=== PATIENT | female | born 1980 | race Caucasian/White ===

== ENCOUNTER 2018-02-07 05:48 | Emergency (ER) | payer OTHER ==
[~2018-02-07] VITALS: Ht 157.5 cm; Wt 74.4 kg
[~2018-02-07 05:48] MED LIST: DOCUSATE SODIU100 MG PO; IBUPROFEN800 MG PO; NATURAL IRON65 MG PO; PERCOCET 325 MG1 TA2 PO
--- NOTE | 2018-02-07 06:21 | ED HEADACHE COMPLAINT ---
History of Present Illness General Chief Complaint: Headache Stated Complaint: DE OLIVEIRA Source: patient Exam Limitations: no limitations Vital Signs & Intake/Output Vital Signs & Intake/Output Vital Signs Date Time Temp Pulse Resp B/P B/P Pulse O2 O2 Flow FiO2 Mean Ox Delivery Rate 02/07 0906 98.7 64 16 98/60 95 Room Air 02/07 0610 98 02/07 0555 97.6 94 18 149/95 98 Room Air Allergies Coded Allergies: NO KNOWN ALLERGIES (03/19/14) Triage Note: PT TO ED C/O HEADACHE SINCE YESTERDAY. STATES "I GET LOTS OF HEADACHES BUT THIS ONE IS WORSE AND LASTING LONGER" TRIED MOTRIN, DRANK COFFEE, TOOK A NAP AND THEN MORE MOTRIN. "NOT GETTING BETTER" "THERE'S SOMETHING WRONG, YOU BETTER SCAN MY HEAD" PT C/O +NAUSEA. PRODUCTIVE COUGH NOTED. PT RUBBING FOREHEAD, SCOTTY ASKED WHEN PAIN IS IN HEAD, STATES "IT'S MOVING ALL OVER" Triage Nurses Notes Reviewed? yes : No Patient currently breastfeeds: No HPI: Patient presents for evaluation of a severe "all over" headache that began yesterday. Patient states it is a sharp constant pain but can't say if it changes with head movement or position. Onset was gradual while at work yesterday. Patient denies any associated fever, cold symptoms or visual changes. She has felt nauseous associated with the headache. She states she gets headaches and usually takes Advil or Motrin. This headache is more severe and is lasting longer than her typical headaches. In addition to the above she is feeling lightheaded. She is a cigarette smoker and occasional alcohol drinker but denies drug use. (Hortencia NERI,Александр Doll) Reconcile Medications Docusate Sodium 100 MG SGL 100 MG PO AT BEDTIME NEEDED PRN STOOL SOFTENER Ibuprofen 800 MG TABLET 800 MG PO Q6P PRN PAIN SCALE 4-6 OXYCODONE HCL/ACETAMINOPHEN (Percocet 5-325 MG Tablet) 325 MG/5 MG TAB 1 TAB PO Q4P PRN PAIN SCALE 7-8 Venlafaxine HCl (Venlafaxine HCl ER) 75 MG CAP.ER.24H 1 CAP PO DAILY ANXIETY (Reported) (Abdulkadir NERI,Mazin Santoro) Past History Travel History Traveled to [place] past 21 day No Medical History Any Pertinent Medical History? see below for history Neurological: migraine Psychiatric: anxiety Surgical History Surgical History: non-contributory Psychosocial History What is your primary language Spanish Tobacco Use: Current Daily Use Daily Tobacco Use Amount/Type: => 5 Cigarettes daily ETOH Use: occasional use Illicit Drug Use: denies illicit drug use Family History Hx Contributory? Yes (HX OF BRAIN ANEURYSM) (Hotrencia NERI,Александр Doll) Review of Systems Review of Systems Constitutional: Reports: no symptoms. Eyes: Reports: no symptoms. Ears, Nose, Throat, Mouth: Reports: no symptoms. Respiratory: Reports: no symptoms. Cardiovascular: Reports: no symptoms. Gastrointestinal/Abdominal: Reports: no symptoms. Genitourinary: Reports: no symptoms. Musculoskeletal: Reports: no symptoms. Skin: Reports: no symptoms. Neurological/Psychological: Reports: see HPI. Hematologic/Endocrine: Reports: no symptoms. Endocrine: Reports: no symptoms. Immunologic/Allergic: Reports: no symptoms. All Other Systems: Reviewed and Negative (Hortencia NERI,Александр Doll) Physical Exam Physical Exam Cranial Nerves: sEE BELOW Comments: Gen.: Well-nourished, well-developed, no acute respiratory distress. Head: Normocephalic, atraumatic. Nontender over temples Face: Nontender to percussion over the sinuses Eyes: Normal inspection bilaterally, PERRLA, EOMI Ears: Normal inspection bilaterally Nose: Normal inspection Throat/mouth : Moist mucosa Neck: Supple, full range of motion, no goiter, no Kernig's or Brudzinski sign Lungs: Quiet respirations Back: Normal range of motion Extremities: Normal range of motion grossly, equal radial pulses, no cyanosis clubbing or edema of upper extremities Neurologic: Cranial nerves 2 through 12 intact, speech is clear, no dysmetria Skin: warm and dry Psychiatric: Calm, cooperative, no apparent delusions or hallucinations, anxious and tearful at times Core Measures Sepsis Present: No Sepsis Focused Exam Completed? No (Hortencia NERI,Александр Doll) Progress Differential Diagnosis: IC mass/tumor, intracranial Hem., migraine DE OLIVEIRA, musculoskeletal pain, tension DE OLIVEIRA, temporal arteritis Plan of Care: Orders Procedure Date/time Status TSH REFLEX 02/07 630 Complete HIGH SENSITIVITY CRP 02/07 630 Complete WESTERGREN SED RATE 02/07 06 Complete CBC WITHOUT DIFFERENTIAL 02/07 619 Complete BASIC METABOLIC PANEL 02/07 619 Complete URINE 02/07 603 Complete Current Medications Sig/Jarrett Start time Last Medication Dose Stop Time Status Admin Magnesium Sulfate 1 GM ONCE ONE 02/07 0900 AC 02/07 (Mag Sulfate in D5) 02/07 1259 0859 Dextrose/Water 100 ML (D5W) Laboratory Tests 02/07/18 0650: ESR Westergren 3 02/07/18 0630: C-React Prot High Sens Cancelled, TSH &T3 &Free T4 Intrp Cancelled 02/07/18 0630: Anion Gap 10, Estimated GFR > 60, BUN/Creatinine Ratio 17.1, Glucose 112 H, Calcium 9.4, C-React Prot High Sens 3.0, TSH &T3 &Free T4 Intrp 2.690, CBC w Diff NO MAN DIFF REQ, RBC 4.76, MCV 85.9, MCH 29.0, MCHC 33.7, RDW 13.5, MPV 8.8 , Gran % 61.4, Lymphocytes % 30.2, Monocytes % 5.5, Eosinophils % 2.5, Basophils % 0.4, Absolute Granulocytes 5.2, Absolute Lymphocytes 2.6, Absolute Monocytes 0.5, Absolute Eosinophils 0.2, Absolute Basophils 0 02/07/18 0602: Urine Test NEGATIVE Comments: 02/07/2018 7:11:40 AM 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 (Hortencia NERI,Александр Doll) Comments: Patient is feeling better after the magnesium and Toradol. Patient has been dieting and counting all of her calories and has decreased her protein intake. Patient advised that she needs to increase her protein as well as drink more fluids. (Abdulkadir NERI,Mazin Santoro) Departure Departure Condition: Stable Clinical Impression Primary Impression: Headache Referrals: Shayla NERI,Cristel Doll (PCP/Family) Departure Forms: Customer Survey General Discharge Information (Hortencia NERI,Александр Doll) Departure Disposition: HOME OR SELF CARE Additional Instructions: Return if symptoms worsen or for any concerns. Prescriptions: Current Visit Scripts Butalb/Acetaminophen/Caffeine (Esgic 50-325-40 MG Tablet) 1 TAB PO Q6P PRN HEADACHE #20 TAB (Abdulkadir NERI,Mazin Santoro)
[2018-02-07 06:51] LABS: ABSOLUTE BASOPHIL COUNT 0 /CUMM (0.0-0.2); ABSOLUTE EOSINOPHIL COUNT 0.2 /CUMM (0.0-0.7); ABSOLUTE GRANULOCYTE CT 5.2 /CUMM (1.4-6.5); ABSOLUTE LYMPH COUNT 2.6 /CUMM (1.2-3.4); ABSOLUTE MONOCYTE COUNT 0.5 /CUMM (0.10-0.60); BASOPHIL % 0.4 % (0.0-2.0); EOSINOPHIL % 2.5 % (0-5); GRANULOCYTE % 61.4 % (42.2-75.2); HEMATOCRIT 40.8 % (37-47); MEAN CORPUSCULAR HGB CONC 33.7 G/DL (33.0-37.0); MEAN CORPUSCULAR VOLUME 85.9 FL (81.0-99.0); MEAN PLATELET VOLUME 8.8 FL (7.4-10.4); PLATELET COUNT 296 /CUMM (130-400); RBC DISTRIBUTION WIDTH 13.5 % (11.5-14.5); RED BLOOD CELL CT 4.76 /CUMM (4.20-5.40); WHITE BLOOD CELL COUNT 8.5 /CUMM (4.8-10.8)
--- NOTE | 2018-02-07 07:03 | CT SCAN REPORT ---
EXAMINATION: CT HEAD WITHOUT CONTRAST CLINICAL INFORMATION: Headache. COMPARISON: CT head November 20, 2017 TECHNIQUE: Contiguous axial imaging was performed from the skull base to vertex without intravenous administration of contrast. DLP: 609.32 mGy-cm FINDINGS: There is no evidence of acute intracranial hemorrhage or territorial infarction. No abnormal mass effect or midline shift is seen. Hernandez to white matter differentiation is well preserved. No extra-axial fluid collections are identified. The ventricles are normal in size. There is no abnormal attenuation within the brain parenchyma. The osseous structures and soft tissues are normal. The mastoid air cells and visualized portions of the paranasal sinuses are well aerated. IMPRESSION: No acute intracranial pathology.
[2018-02-07] MEDS ORDERED: VENLAFAXINE HCL75 M1 PO (08:45)
[2018-02-07 09:06] VITALS: BP 98/60
[2018-02-07] MEDS ORDERED: ESGIC 50-325-41 EACH PO (10:11)
== END 2018-02-07 10:14 ==
LOC: ERH 05:48
PROVIDERS: Emergency Medicine
DX: R51 Headache (principal)
CPT/HCPCS: 81025; 96365; 96375; J0131; J1885; J2550